=== PATIENT | female | born 1990 | race Hispanic/Latino ===

== ENCOUNTER 2018-08-23 00:01 | Inpatient (IN) | payer OTHER ==
[~2018-08-23] VITALS: Ht 160 cm; Wt 80.0 kg
[2018-08-23] MEDS ORDERED: PRENA1 CHEW TA1.4 MG PO (00:56)
[2018-08-23] MEDS ORDERED: CALCIUM500 M1 PO (00:56)
[2018-08-23] MEDS ORDERED: ZANTAC150 MG PO (00:57)
--- NOTE | 2018-08-24 08:11 | PR ---
[facility] [address] [facility] [place], [place] [address] Signed PP Progress Notes Datetime Report Generated by CPN: 08/24/2018 08:11 SUBJECTIVE: [id number] Pain: Within normal limits Vital Signs: [id number] Vital Signs: Reviewed; Within Normal Limits EXAM: [id number] Cardiovascular: Not Done Respiratory: Not Done Abdomen/Uterus: Abnormal Lochia: Normal Vulva/Perineum: Not Done Breasts: Not Done CVA Tenderness: Not Done Extremities: Normal Incision: Not Applicable Progress: Abnormal Exam Comments: Fundus firm, NT @ U-1. H/H 11.4/34.3, WBC 12.2, plat 289k IMPRESSION/PLAN/PROCEDURES: [id number] Impression: Normal progression Plan: Continue present management; consult Progress Notes: Doing well other than difficulty with breast feeding. Signing Physician: Shahla Davalos MD Copies: ~ *Electronically Signed* 08/24/18810 SHAHLA DAVALOS MD PATIENT NAME: JESSICA FORD PROGRESS NOTE DATE OF : 89 PHYSICIAN: SHAHLA DAVALOS MD RPT #: [id number] REPORT IS CONFIDENTIAL AND NOT TO BE RELEASED WITHOUT AUTHORIZATION
--- NOTE | 2018-08-25 09:53 | PR ---
[facility] [address] [facility] [place], [place] [address] Signed PP Progress Notes Datetime Report Generated by CPN: 08/25/2018 09:53 SUBJECTIVE: [id number] Pain: Within normal limits Vital Signs: [id number] Vital Signs: Reviewed; Within Normal Limits EXAM: [id number] Cardiovascular: Not Done Respiratory: Not Done Abdomen/Uterus: Abnormal Lochia: Normal Vulva/Perineum: Not Done Breasts: Not Done CVA Tenderness: Not Done Extremities: Normal Incision: Not Applicable Progress: Abnormal Exam Comments: Fundus firm, NT @ U-1. IMPRESSION/PLAN/PROCEDURES: [id number] Impression: Normal progression; difficulties Plan: Discharge Procedures: None Progress Notes: Doing well though still issues with breast feeding. Will D/C today and she will become boarder if necessary. Signing Physician: Shahla Davalos MD Copies: ~ *Electronically Signed* 08/25/18 0953 SHAHLA DAVALOS MD PATIENT NAME: HARINI FORDDE LEIGH PROGRESS NOTE DATE OF : 89 PHYSICIAN: SHAHLA DAVALOS MD RPT #: [id number] REPORT IS CONFIDENTIAL AND NOT TO BE RELEASED WITHOUT AUTHORIZATION
== END 2018-08-25 13:30 | disposition home or self-care (01) | DRG 807 ==
LOC: FBC 00:01
PROVIDERS: ADMIT Obstetrics & Gynecology
PROC: 10E0XZZ Delivery of Products of Conception, External Approach (ICD-10-PCS; principal; 2018-08-23)
PROC: 0KQM0ZZ Repair Perineum Muscle, Open Approach (ICD-10-PCS; 2018-08-23)
PROC: 3E0P7VZ Introduction of Hormone into Female Reproductive, Via Natural or Artificial Opening (ICD-10-PCS; 2018-08-23)
PROC: 00HU33Z Insertion of Infusion Device into Spinal Canal, Percutaneous Approach (ICD-10-PCS; 2018-08-23)
PROC: 3E0R3BZ Introduction of Anesthetic Agent into Spinal Canal, Percutaneous Approach (ICD-10-PCS; 2018-08-23)
DX: O48.0 Post-term pregnancy (principal); Z37.0 Single live birth; Z3A.41 41 weeks gestation of pregnancy; O70.1 Second degree perineal laceration during delivery; O77.0 Labor and delivery complicated by meconium in amniotic fluid; O99.62 Diseases of the digestive system complicating childbirth; K21.9 Gastro-esophageal reflux disease without esophagitis; Z79.899 Other long term (current) drug therapy
CPT/HCPCS: 01960; 36415; 85027; J2590

== ENCOUNTER 2022-11-27 00:09 | Inpatient (IN) | payer OTHER ==
[~2022-11-27] VITALS: Ht 160 cm; Wt 88.5 kg
[~2022-11-27 00:09] MED LIST: CALCIUM500 M1 PO; PRENA1 CHEW TA1.4 MG PO; ZANTAC150 MG PO
[2022-11-27 01:55] VITALS: BP 127/73
--- NOTE | 2022-11-27 11:16 | PR ---
[facility] [address] [facility] [place], [place] [address] Signed Progress Notes IP Datetime Report Generated by CPN: 11/27/2022 11:16 PROGRESS NOTES: [id number] Impression: Normal Progression of Labor; Reassuring Heart Rate Procedures: Artificial ROM; Sterile Vag Exam Plan: Continue Present Management VITAL SIGNS: [id number] Vital Signs: Reviewed; Within Normal Limits EXAM: [id number] Dilatation: 3.0 Effacement: 80 Station: -2 Contractions: irreg MEMBRANES: [id number] Comments: Progressing. Will continue. FETUS A: [id number] FHR Baseline: 130 Variability: Moderate 6-25bpm Accelerations: 15X15 Decelerations: None FHR Category: Category I Presentation: Vertex Comments on Fetus A: no evidence of metabolic acidosis FETUS B: [id number] Signing Physician: Shahla Davalos MD Copies: ~ *Electronically Signed* 11/27/22 1116 SHAHLA DAVALOS MD PATIENT NAME: JESSICA CURRY PROGRESS NOTE DATE OF : 89 PHYSICIAN: SHAHLA DAVALOS MD RPT #: [id number] REPORT IS CONFIDENTIAL AND NOT TO BE RELEASED WITHOUT AUTHORIZATION
--- NOTE | 2022-11-27 17:12 | PR ---
[facility] [address] [facility] [place], [place] [address] Signed Progress Notes IP Datetime Report Generated by DIANNA: 11/27/2022 17:12 PROGRESS NOTES: [id number] Impression: Normal Progression of Labor; Reassuring Heart Rate Procedures: Sterile Vag Exam Plan: Anesthesia Consult VITAL SIGNS: [id number] Vital Signs: Reviewed; Within Normal Limits EXAM: [id number] Dilatation: 8.5 Effacement: 100 Station: -2 Contractions: irreg MEMBRANES: [id number] Comments: Uncomfortable even with epidural. Some decels as well. Will ask for redose and change pt position and will closely observe status. FETUS A: [id number] FHR Baseline: 130 Variability: Moderate 6-25bpm Accelerations: 15X15 Decelerations: None FHR Category: Category I Presentation: Vertex Comments on Fetus A: no evidence of metabolic acidosis FETUS B: [id number] Signing Physician: Shahla Davalos MD Copies: ~ *Electronically Signed* 11/27/22 1712 SHAHLA DAVALOS MD PATIENT NAME: CURRY,JESSICACURTIS PROGRESS NOTE DATE OF : 89 PHYSICIAN: SHAHLA DAVALOS MD RPT #: [id number] REPORT IS CONFIDENTIAL AND NOT TO BE RELEASED WITHOUT AUTHORIZATION
--- NOTE | 2022-11-28 08:39 | PR ---
[facility] [address] [place], [place] [address] Signed PP Progress Notes Datetime Report Generated by CPN: 11/28/2022 08:39 SUBJECTIVE: [id number] Pain: Within Normal Limits Nausea/Vomiting: Denies Flatus: Yes Vital Signs: [id number] Vital Signs: Reviewed; Within Normal Limits Cardiovascular: Normal Respiratory: Normal Abdomen/Uterus: Normal Lochia: Normal Vulva/Perineum: Normal Breasts: Normal CVA Tenderness: Normal Extremities: Normal Incision: Not Applicable Progress: Normal Exam Comments: NAD, sitting in bed holding baby IMPRESSION/PLAN/PROCEDURES: [id number] Impression: Normal Progression Plan: Continue Present Management; Discharge Procedures: None Progress Notes: 31 yo PPD#1 s/p uncomplicated -progressing well : ambulating, voiding, tolerating regular diet, pain well controlled with heat/ice/dermoplast. well, requesting DC to home today if possible. -H/o PPD: attributes to difficulties daughter, going much better this time. Discussed starting medication early as a preventative, pt declines. -Undecided re: contraception Plan: routine care, DC to home at 24h as long as baby cleared by peds at that time. Signing Physician: Shara Duarte DO Copies: *Electronically Signed* 11/28/22 0839 SHARA DUARTE DO PATIENT NAME: JESSICA CURRY PROGRESS NOTE DATE OF : 91 PHYSICIAN: SHARA DUARTE DO RPT #: [id number] REPORT IS CONFIDENTIAL AND NOT TO BE RELEASED WITHOUT AUTHORIZATION [address], [place] [address] Signed ~ *Electronically Signed* 11/28/22 0839 SHARA DUARTE DO PATIENT NAME: JESSICA CURRY PROGRESS NOTE DATE OF : 89 PHYSICIAN: SHARA DUARTE DO RPT #: [id number] REPORT IS CONFIDENTIAL AND NOT TO BE RELEASED WITHOUT AUTHORIZATION
== END 2022-11-28 19:10 | disposition home or self-care (01) | DRG 807 ==
LOC: FBC 00:09
PROVIDERS: ADMIT Obstetrics & Gynecology; ATTEND Obstetrics & Gynecology
PROC: 10907ZC Drainage of Amniotic Fluid, Therapeutic from Products of Conception, Via Natural or Artificial Opening (ICD-10-PCS; 2022-11-27)
PROC: 00HU33Z Insertion of Infusion Device into Spinal Canal, Percutaneous Approach (ICD-10-PCS; 2022-11-27)
PROC: 3E0R3BZ Introduction of Anesthetic Agent into Spinal Canal, Percutaneous Approach (ICD-10-PCS; 2022-11-27)
PROC: 0KQM0ZZ Repair Perineum Muscle, Open Approach (ICD-10-PCS; 2022-11-27)
PROC: 3E0P7VZ Introduction of Hormone into Female Reproductive, Via Natural or Artificial Opening (ICD-10-PCS; 2022-11-27)
PROC: 10E0XZZ Delivery of Products of Conception, External Approach (ICD-10-PCS; principal; 2022-11-28)
DX: O70.1 Second degree perineal laceration during delivery (principal); Z37.0 Single live birth; Z67.10 Type A blood, Rh positive; Z3A.39 39 weeks gestation of pregnancy; F32.A Depression, unspecified; Z98.890 Other specified postprocedural states; Z88.8 Allergy status to other drugs, medicaments and biological substances; Z90.89 Acquired absence of other organs
CPT/HCPCS: 01960; 36415; 85027; 86850; 86900; 86901; J2590; J3010; J7121